=== PATIENT | male | born 1970 | race Caucasian/White ===

== ENCOUNTER 2022-09-05 13:38 | Emergency (ER) | payer MEDICAID, SELFPAY ==
[2022-09-05 13:45] VITALS: BP 156/107; PULSE 73; RESP 18; TEMP 36.9; O2SAT 99; BMI 24.0
--- NOTE | 2022-09-05 13:56 | CRLHL7_ITS ---
For Patients: As a result of the Century Cures Act, medical imaging exams and procedure reports are released immediately into your electronic medical record. You may view this report before your referring provider. If you have questions, please contact your health care provider. INDICATION: Right flank swelling TECHNIQUE: Axial images were obtained from the diaphragm to the pubic symphysis. Reformats were obtained in the coronal and sagittal plane. IV Contrast: 91 cc Isovue 370 Oral Contrast: None COMPARISON: None. FINDINGS: Lower chest: Unremarkable. Liver: Unremarkable. Normal in size and attenuation. No masses. Gallbladder and bile ducts: Unremarkable. No stones or inflammation. No biliary dilatation. Spleen: Unremarkable. Normal in size without mass. Pancreas: Unremarkable. No mass or inflammation. Adrenal glands: Unremarkable. No nodules. Kidneys: Symmetric renal enhancement without hydronephrosis. Nonobstructing stone at the lower pole of the left kidney. Vasculature: Unremarkable. GI tract: Moderate distention of the stomach. No dilated loops of large or small intestine. Some fluid noted within the colon. Appendix not seen although there is no pericecal inflammation. Pelvis: Mild prostatic enlargement. Bladder unremarkable. Bones: Unremarkable for age. IMPRESSION: 1. No dilated loops of large or small intestine. Some fluid noted within the colon which can be seen in a diarrheal illness. 2. Mild prostatic enlargement. Please note that all CT scans at this facility use dose modulation, iterative reconstruction, and/or weight-based dosing when appropriate to reduce radiation dose to as low as reasonably achievable. Dictated by Derrell Stratton MD @ 09/05/2022 3:10:38 PM (Electronically Signed)
--- NOTE | 2022-09-05 13:58 | ED_ITS ---
HPI - Abdominal Pain General Chief Complaint: Abdominal Pain Stated Complaint: Lower abdominal pain/lump Time Seen by Provider: 09/05/22 13:52 History of Present Illness HPI narrative: Pt is a 52 year old gentleman who presents after noticing a lump on the right side of his abd for the past month. Pt has had some slowing of his stool outpt. Pt does have abd fullness at times. No nausea or vomiting. No fevers, chills or dysuria. Pt is concerned that he has a hernia. Pt has no chest pain but did have a myocardial infarction in 2005. Pt has not seen a doctor in quite some time. The lump is usually soft and he states that it is approximately the size of a chicken egg. No injury or recent trauma. Related Data Allergies Allergy/AdvReac Type Severity Reaction Status Date / Time No Known Drug Allergies Allergy Verified 09/05/22 14:15 Review of Systems Status of ROS Reports: 10 or more systems reviewed and unremarkable except as noted in History and below [facility] Medical History (Updated 09/05/22 @ 15:28 by Drew Cornejo MD) Hypertension Myocardial infarction Social History Smoking Status: Never smoker Do you use any of these nicotine containing products: None Second hand tobacco smoke exposure: No How often do you have a drink containing alcohol: never How often do you have six or more drinks on one occasion: Never AUDIT-C Alcohol total score: 0 Non-prescribed substance use: denies use service: No Exam Narrative: Exam Narrative: EXAM GENERAL: Patient appears comfortable and well. EYES: No scleral icterus. LYMPH: No supraclavicular or cervical lymphadenopathy. SKIN: Visible skin seen during exam normal or with benign process only. EXT: No dependent lower extremity pedal edema. HEART: Regular rate and rhythm with no murmurs, rubs, or gallops. LUNGS: Clear to auscultation bilaterally with no crackles or wheezes. ABD: Soft, non tender, non distended. Soft compressible area in the right anterior axillary line noted. No skin changes. PSYCH: Good eye contact, speech is not pressured. Const: Vital Signs, click to edit/add: Vital Signs - 24 hr 09/05/22 13:45 Temperature 98.5 F Pulse Rate [Pulse Oximeter] 73 Respiratory Rate 18 Blood Pressure [Le ft Upper Arm] 156/107 H Pulse Oximetry 99 Oxygen Delivery Me thod Room Air Course Course Hospital Course: Pt seen and examined. CT of abd and pelvis, CBC, CMP, Amylase, Urinalysis ordered. Reevaluation(s) Reevaluation #1: Pt's labs and CT reassuring. Time: 15:24 Vital Signs Vital signs: Initial Vital Signs Temperature 98.5 F 09/05/22 13:45 Temperature Source Temporal Artery Scan 09/05/22 13:45 Pulse Rate 73 09/05/22 13:45 Pulse Rhythm 09/05/22 13:45 Pulse Strength 3+ Normal 09/05/22 13:45 Respiratory Rate 18 09/05/22 13:45 Blood Pressure 156/107 H 09/05/22 13:45 Blood Pressure Mean 123 09/05/22 13:45 Blood Pressure Position Supine 09/05/22 13:45 Pulse Oximetry 99 09/05/22 13:45 Oxygen Delivery Method 09/05/22 13:45 Vital Signs Temperature 98.5 F 09/05/22 13:45 Pulse Rate 73 09/05/22 13:45 Respiratory Rate 18 09/05/22 13:45 Blood Pressure 156/107 H 09/05/22 13:45 Pulse Oximetry 99 09/05/22 13:45 Oxygen Delivery Method 09/05/22 13:45 Temperature 98.5 F 09/05/22 13:45 Pulse Rate 73 09/05/22 13:45 Respiratory Rate 18 09/05/22 13:45 Blood Pressure 156/107 H 09/05/22 13:45 Pulse Oximetry 99 09/05/22 13:45 Oxygen Delivery Method 09/05/22 13:45 MDM - Abdominal Pain MDM Narrative Medical decision making narrative: Pt is a 52 year old gentleman who presents with a lump on the right side of the abd. CT normal. Labs normal. Pt has a history of [place] and is noted to be hypertensive. Will arrange follow up. Pt otherwise feels well and is ready to be discharged. Differential Diagnosis Differential diagnosis: Likely abdominal pain, acute appendicitis, calculus of kidney, constipation, diverticulitis, gastroenteritis, pancreatitis and small bowel obstruction Lab Data Labs: Lab Results 09/05/22 09/05/22 09/05/22 Range/Units 13:56 13:56 14:15 WBC 6.86 (4.50-11.00) K/uL RBC 4.88 (4.30-5.90) m/uL Hgb 15.3 (13.5-17.5) gm/dL Hct 46.0 (37.0-53.0) % MCV 94 (80-100) fL MCH 31 (26-34) pg MCHC 33 (32-36) gm/dL RDW Coeff of Mirta 12.9 (11.5-15.5) % Plt Count 193 (140-440) K/uL Neut % (Auto) 58.1 (42.0-72.0) % Lymph % (Auto) 32.7 (20-44) % [place] % (Auto) 6.9 (0.0-11.0) % Eos % (Auto) 1.9 (0.0-7.0) % Baso % (Auto) 0.3 (0.0-3.0) % Neut # (Auto) 3.99 (1.7-7.0) K/uL Lymph # (Auto) 2.24 (0.90-2.90) K/uL [place] # (Auto) 0.50 (0.00-0.90) K/UL Eos # (Auto) 0.13 (0.00-0.50) K/uL Baso # (Auto) 0.02 (0.00-0.30) K/uL Sodium 138 (135-149) mmol/L Potassium 4.0 (3.6-5.1) mmol/L Chloride 107 (96-114) mmol/L Carbon Dioxide 26 (20-32) mmol/L BUN 11 (7-30) mg/dL Creatinine 0.8 (0.5-1.5) mg/dL Estimated Creat Clear 123.46 Estimated GFR 107 ml/min Glucose 104 (60-115) mg/dL Calcium 9.2 (8.4-10.6) mg/dL Total Bilirubin 0.7 (0.1-1.5) mg/dL AST 32 (12-35) U/L ALT 31 (4-50) U/L Alkaline Phosphatase 86 (40-150) U/L Total Protein 7.4 (6.0-8.3) g/dL Albumin 4.4 (3.3-5.0) g/dL Amylase 73 (18-89) U/L Urine Color Yellow (Yellow) Urine Appearance Clear (Clear) Urine pH 6.0 (5.0-8.5) Ur Specific [place] 1.010 (1.000-1.030) Urine Protein Negative (Negative) Urine Glucose (UA) Negative (Negative) Urine Ketones Negative (Negative) Urine Blood Negative (Negative) Urine Nitrite Negative (Negative) Urine Bilirubin Negative (Negative) Urine Urobilinogen 0.2 (0.2-1.0) Ur Leukocyte Esterase Negative (Negative) Discharge Plan Discharge Clinical Impression: Hypertension Patient Disposition: Home, Self-Care Condition: Stable Instructions: Chronic Hypertension (DC) Additional Instructions: Continue current diet and activity Follow up with Dr. Cornejo in 2 weeks. Activity Level: No Restrictions Discharge Diet: Regular Follow Up/Referrals: Provider,Not a Local [Primary Care Provider] - Stand Alone Forms: [employer] Info Instructions
[2022-09-05 14:16] LABS: Basophils Absolute Auto 0.02 K/uL (0.00-0.30); Basophils Percent Auto 0.3 % (0.0-3.0); Eosinophils Absolute Auto 0.13 K/uL (0.00-0.50); Eosinophils Percent Auto 1.9 % (0.0-7.0); Hemoglobin* 15.3 gm/dL (13.5-17.5); Immature Granulocytes Abs Auto 0.01 K/uL (0.00-0.30); Immature Granulocytes Pct Auto 0.1 %; Lymphocytes Absolute Auto 2.24 K/uL (0.90-2.90); Lymphocytes Percent Auto 32.7 % (20-44); Mean Corpuscular HGB Conc 33 gm/dL (32-36); Mean Corpuscular Hemoglobin 31 pg (26-34); Mean Corpuscular Volume 94 fL (80-100); Monocytes Percent Auto 6.9 % (0.0-11.0); Neutrophils Absolute Auto 3.99 K/uL (1.7-7.0); Neutrophils Percent Auto 58.1 % (42.0-72.0); Platelet Count* 193 K/uL (140-440); RDW Coefficient of Variation % 12.9 % (11.5-15.5); Red Blood Count 4.88 m/uL (4.30-5.90); White Blood Count* 6.86 K/uL (4.50-11.00)
[2022-09-05 14:31] LABS: Slide Review Reflex No
[2022-09-05 14:32] LABS: Albumin* 4.4 g/dL (3.3-5.0); Chloride* 107 mmol/L (96-114)
[2022-09-05 14:33] LABS: Sodium* 138 mmol/L (135-149)
[2022-09-05 14:35] LABS: Amylase* 73 U/L (18-89); Aspartate Amino Transferase* 32 U/L (12-35); Bilirubin Total* 0.7 mg/dL (0.1-1.5); Blood Urea Nitrogen* 11 mg/dL (7-30); Carbon Dioxide* 26 mmol/L (20-32); Creatinine* 0.8 mg/dL (0.5-1.5); Est. Creatinine Clearance* 123.46; Estimated Glomerular Filt Rate 107 ml/min; Total Protein* 7.4 g/dL (6.0-8.3)
[2022-09-05 14:36] LABS: Alanine Aminotransferase* 31 U/L (4-50); Alkaline Phosphatase* 86 U/L (40-150); Calcium* 9.2 mg/dL (8.4-10.6); Glucose* 104 mg/dL (60-115)
[2022-09-05 14:52] LABS: Appearance Urine Clear (Clear); Bilirubin Urine Negative (Negative); Blood Urine Negative (Negative); Color Urine Yellow (Yellow); Glucose Urine Negative (Negative); Ketones Urine Negative (Negative); Leukocyte Esterase Urine Negative (Negative); Nitrite Urine Negative (Negative); Protein Urine Negative (Negative); Urobilinogen Urine 0.2 (0.2-1.0)
== END 2022-09-05 15:36 | disposition home or self-care (01) ==
PROVIDERS: Emergency Provider Internal Medicine
DX: I10 Essential (primary) hypertension (principal)
CPT/HCPCS: 36415; 74177; 80053; 81003; 82150; 85025; 93005; 99283; 99284; Q9967

== ENCOUNTER 2022-09-25 07:04 | Outpatient (CLI) | payer MEDICAID, SELFPAY ==
--- NOTE | 2022-09-25 07:15 | CRLHL7_ITS ---
For Patients: As a result of the Cures Act, medical imaging exams and procedure reports are released immediately into your electronic medical record. You may view this report before your referring provider. If you have questions, please contact your health care provider. Indication: Right lower abdominal palpable abnormality Technique: Ultrasound abdomen limited Comparison: None Findings: Present in the right lower quadrant is a 2.8 centimeter x 0.7 centimeter x 1.1 centimeter oval solid hypoechoic lesion with a thin echogenic capsule. This is located just deep to the cutaneous layer most likely represents a lipoma. Impression: 2.8 centimeter probable lipoma right lower quadrant. Recommend clinical follow-up. Dictated by Lee Metz MD @ 09/25/2022 9:46:35 AM (Electronically Signed)
== END 2022-09-25 07:05 | disposition home or self-care (01) ==
LOC: US 07:05
PROVIDERS: PCP Internal Medicine; Visit Provider Internal Medicine
DX: D17.9 Benign lipomatous neoplasm, unspecified (principal)
CPT/HCPCS: 76705